=== PATIENT | male | born 1985 | race Caucasian/White ===

== ENCOUNTER 2022-06-12 16:25 | Emergency (ER) | payer OTHER ==
[~2022-06-12] VITALS: Ht 170.2 cm; Wt 115.7 kg
[2022-06-12 16:28] VITALS: BP 153/78
--- NOTE | 2022-06-12 16:44 | NUR ---
MD ARRIETA AT BEDSIDE FOR EVALUATION
[2022-06-12] MEDS ORDERED: KETOROLAC 60 MG/2 ML VIAL IM ONE (16:45)
--- NOTE | 2022-06-12 16:45 | NUR ---
36YO MALE PT C/O SHARP LLQ ABD PAIN X2DAYS. PAIN AT MOST ON MOVEMENT. REPORTS S/S TO RECENT DX DIVERTICULITIS. ABD TENDER TO TOUCH, NON DISTENED. DENIES TAKING PAIN MEDICATION, N/V/D, FEVER, CHILLS, CHEST PAIN OR SOB. PT AAOX4, NO VISIBLE DISTRESS . HOB POSITIONED PER COMFORT. HX: DIVERTICULITIS NKA
[2022-06-12] MEDS ORDERED: IBUP-2213 PO (16:51)
[2022-06-12] MEDS ORDERED: CIPR500T4 PO (16:51)
[2022-06-12] MEDS ORDERED: METR-435 PO (16:51)
--- NOTE | 2022-06-12 16:51 | NUR ---
36/M PRESENTS TO ED WITH C/O ABDOMINAL PAIN X2 DAYS, STATES HE WAS DX WITH DIVERTICULITIS A FEW WEEKS AGO AT URGENT CARE AND STATES PAIN FEELS SIMILAR, DENIES N/V/D, URINARY SYMPTOMS. STATES WAS GIVEN RX OF ABX FROM URGENT CARE THAT HE HAS SINCE FINISHED.
--- NOTE | 2022-06-12 17:08 | NUR ---
Patient discharged with v/s stable. Written and verbal after care instructions FOR DIVERTICULITIS AND ABD PAIN given and explained. Patient alert, oriented and verbalized understanding of instructions. Ambulatory with steady gait. All questions addressed prior to discharge. ID band removed. Patient advised to follow up with PMD. Rx of CIPRO, IBUPROFEN AND METRONIDAZOLE given. Opportunity to ask questions provided and answered.
--- NOTE | 2022-06-12 17:09 | NUR ---
The patient's care was reviewed and supervised by Catie Simeon RN.
== END 2022-06-12 17:08 | disposition home or self-care (01) ==
LOC: MED 16:25
DX: R10.32 Left lower quadrant pain (principal)
CPT/HCPCS: 96372; 99283; J1885

== ENCOUNTER 2022-08-18 13:29 | Emergency (ER) | payer OTHER ==
[~2022-08-18] VITALS: Ht 170.2 cm; Wt 108.9 kg
[~2022-08-18 13:29] MED LIST: CIPR500T4 PO; IBUP-2213 PO; METR-435 PO
[2022-08-18 13:45] VITALS: BP 125/74
--- NOTE | 2022-08-18 13:45 | NUR ---
BIBS FOR RIGHT PLANTAR FOOT 01/05 SINCE FRIDAY. NO TRAUMA OR FALL. NO SWELLING OR REDNESS. CSMPT INTACT. AMBULATES WITH LIMP.
[2022-08-18] MEDS ORDERED: IBUPROFEN 600 MG TAB PO ONE (14:35)
[2022-08-18] MEDS ORDERED: IBUP-2213 PO (14:35)
[2022-08-18 15:00] VITALS: BP 128/76
--- NOTE | 2022-08-18 15:01 | NUR ---
Patient discharged with v/s stable. Written and verbal after care instructions given and explained. Patient alert, oriented and verbalized understanding of instructions. Carried with steady gait. All questions addressed prior to discharge. ID band removed. Patient advised to follow up with PMD. Rx of given. Patient educated on indication of medication including possible reaction and side effects. Opportunity to ask questions provided and answered.
== END 2022-08-18 15:01 | disposition home or self-care (01) ==
LOC: MED 13:29
DX: M72.2 Plantar fascial fibromatosis (principal); Z79.899 Other long term (current) drug therapy
CPT/HCPCS: 99282

== ENCOUNTER 2022-09-25 12:19 | Emergency (ER) | payer OTHER ==
[~2022-09-25] VITALS: Ht 167.6 cm; Wt 113.4 kg
[2022-09-25 12:54] VITALS: BP 131/91
[2022-09-25] MEDS ORDERED: KETOROLAC 30 MG/ML VIAL IM ONE (13:30)
[2022-09-25] MEDS ORDERED: LIDOCAINE 5% 1 EA PATCH TP ONE (13:30)
--- NOTE | 2022-09-25 13:54 | NUR ---
seen by dr dunlap on chair b, medicated as ordered. ambulates with steady gait
[2022-09-25] MEDS ORDERED: CYCL-711 PO (14:10)
[2022-09-25] MEDS ORDERED: LID5T TP (14:10)
[2022-09-25] MEDS ORDERED: IBUP-2213 PO (14:10)
[2022-09-25 14:18] VITALS: BP 131/91
--- NOTE | 2022-09-25 14:18 | NUR ---
Patient discharged with v/s stable. Written and verbal after care instructions given and explained. Patient alert, oriented and verbalized understanding of instructions. Ambulatory with steady gait. All questions addressed prior to discharge. ID band removed. Patient advised to follow up with PMD. Rx of flexeril, lidoderm, motrin (sent) given. Patient educated on indication of medication including possible reaction and side effects. Opportunity to ask questions provided and answered. work note given
== END 2022-09-25 14:18 | disposition home or self-care (01) ==
LOC: MED 12:19
DX: S29.012A Strain of muscle and tendon of back wall of thorax, initial encounter (principal); S39.012A Strain of muscle, fascia and tendon of lower back, initial encounter; Z79.899 Other long term (current) drug therapy; V89.2XXA Person injured in unspecified motor-vehicle accident, traffic, initial encounter; Y93.89 Activity, other specified; Y92.89 Other specified places as the place of occurrence of the external cause; Y99.8 Other external cause status
CPT/HCPCS: 96372; 99283; J1885